=== PATIENT | female | born 2000 | race Caucasian/White ===

== ENCOUNTER 2022-07-04 13:39 | Observation (INO) | payer MEDICAID ==
[~2022-07-04] VITALS: Ht 160 cm; Wt 61.2 kg
== END 2022-07-04 16:30 | disposition home or self-care (01) ==
LOC: 8 EST LDRP 13:39
PROVIDERS: ADMIT Obstetrics & Gynecology; ATTEND Obstetrics & Gynecology
DX: O26.893 Other specified pregnancy related conditions, third trimester (principal); R10.30 Lower abdominal pain, unspecified; O99.891 Other specified diseases and conditions complicating pregnancy; M54.9 Dorsalgia, unspecified; Z3A.32 32 weeks gestation of pregnancy; Z79.899 Other long term (current) drug therapy
CPT/HCPCS: 59025; 76805; 76818; 99281; G0378

== ENCOUNTER 2022-07-19 17:07 | Observation (INO) | payer MEDICAID ==
[~2022-07-19] VITALS: Ht 165.1 cm; Wt 61.0 kg
[2022-07-19] MEDS ORDERED: LACTATED RINGERS 1,000 ML IV SCH (18:30)
[2022-07-19 19:05] LABS: CLARITY URINE CLEAR (CLEAR); COLOR URINE YELLOW (YELLOW); KETONES URINE NEGATIVE (NEGATIVE); LEUKOCYTE ESTERASE URINE TRACE (NEGATIVE); NITRITE URINE NEGATIVE (NEGATIVE); OCCULT BLOOD URINE NEGATIVE (NEGATIVE); PH URINE 6.5 (4.5-8.0); PROTEIN URINE NEGATIVE (NEGATIVE); SPECIFIC GRAVITY URINE 1.009 (1.005-1.030); UROBILINOGEN URINE 0.2 E.U./dL (0.2-1.0)
[2022-07-19] MEDS ORDERED: PREN1TAB78 PO (20:10)
== END 2022-07-19 20:45 | disposition home or self-care (01) ==
LOC: 8 EST LDRP 17:07
PROVIDERS: ADMIT Obstetrics & Gynecology; ATTEND Obstetrics & Gynecology
DX: O26.893 Other specified pregnancy related conditions, third trimester (principal); N89.8 Other specified noninflammatory disorders of vagina; R10.9 Unspecified abdominal pain; Z3A.34 34 weeks gestation of pregnancy
CPT/HCPCS: 59025; 81003; 82731; 96360; 96361; G0378; 99281

== ENCOUNTER 2022-08-04 19:29 | Observation (INO) | payer MEDICAID ==
[~2022-08-04] VITALS: Ht 163 cm; Wt 63.0 kg
[~2022-08-04 19:29] MED LIST: PREN1TAB78 PO
[2022-08-04] MEDS ORDERED: ACETAMINOPHEN 325MG TABLET PO NR (22:45)
[2022-08-04] MEDS ORDERED: TOPUD MT (23:01)
== END 2022-08-04 23:20 | disposition home or self-care (01) ==
LOC: INTOOBSV 19:29 → 8 EST LDRP 19:29
PROVIDERS: ADMIT Obstetrics & Gynecology; ATTEND Obstetrics & Gynecology
DX: O26.893 Other specified pregnancy related conditions, third trimester (principal); N89.8 Other specified noninflammatory disorders of vagina; O62.9 Abnormality of forces of labor, unspecified; Z3A.37 37 weeks gestation of pregnancy; Z79.899 Other long term (current) drug therapy
CPT/HCPCS: 59025; 76815; 76818; 86703; G0378; 99281

== ENCOUNTER 2022-08-09 01:21 | Inpatient (IN) | payer MEDICAID ==
[~2022-08-09] VITALS: Ht 163 cm; Wt 63.5 kg
[~2022-08-09 01:21] MED LIST changes: +TOPUD MT
[2022-08-09] MEDS ORDERED: CARBOPROST TROMETHAMINE 250 MCG/ML AMPUL IM PRN (02:15)
[2022-08-09] MEDS ORDERED: METHYLERGONOVINE MALEATE 0.2 MG/ML IM PRN (02:15)
[2022-08-09] MEDS ORDERED: BUTORPHANOL TARTRATE 2 MG/ML VIAL IV PRN (02:15)
[2022-08-09] MEDS ORDERED: LACTATED RINGERS 1,000 ML IV SCH (02:15)
[2022-08-09] MEDS ORDERED: LIDOCAINE HCL 1% 20ML VIAL (Pyxis) INJ INFIL SCH (02:15)
[2022-08-09] MEDS ORDERED: PENICILLIN G POTASSIUM 5 MMU in DEXT 5% WATER 100 ML IV NR (03:00)
[2022-08-09] MEDS: OXYTOCIN 30 UNITS/500ML NS PMX 500 ML IV SCH ×2 (04:38→05:08)
[2022-08-09 05:39] LABS: BASOPHILS % 0.2 % (0.0-2.0); EOSINOPHILS % 0.2 % (0.0-5.0); HEMATOCRIT. 37.2 % (36.0-48.0); HEMOGLOBIN. 12.8 g/dL (12.0-16.0); LYMPHOCYTES % 17.9 % (20.0-50.0); MEAN CORPUSCULAR HEMOGLOBIN 29.8 pg (28.0-32.0); MEAN CORPUSCULAR VOLUME 86.8 fL (81.0-99.0); MEAN PLATELET VOLUME 10.5 fl (7.4-10.4); MONOCYTES % 5.4 % (2.0-8.0); NEUTROPHILS % 76.3 % (40.0-76.0); PLATELET 183 x1000/uL (130-400); RED BLOOD CELL COUNT 4.29 mill/uL (4.2-5.4); RED CELL DISTRIBUTION WIDTH 13.6 % (11.6-14.6)
[2022-08-09] MEDS ORDERED: DIPHENHYDRAMINE 25MG CAPSULE PO PRN (05:45)
[2022-08-09] MEDS ORDERED: ACETAMINOPHEN WITH CODEINE 300/30MG TABLET PO PRN (05:45)
[2022-08-09] MEDS ORDERED: GLYCERIN/WITCH HAZEL LEAF MEDICATED PAD TOP PRN (05:45)
[2022-08-09] MEDS ORDERED: BENZOCAINE/LANOLIN/ALOE VERA SPRAY TOP PRN (05:45)
[2022-08-09] MEDS ORDERED: IBUPROFEN 400MG TABLET PO PRN (05:45)
[2022-08-09] MEDS ORDERED: HEMORRHOIDAL SUPP PR PRN (05:45)
[2022-08-09] MEDS ORDERED: RHO(D) IMMUNE GLOBULIN 300 MCG/SYR IM PRN (05:45)
[2022-08-09] MEDS ORDERED: LANOLIN OINT 7GM TUBE TOP PRN (05:45)
[2022-08-09] MEDS ORDERED: ACETAMINOPHEN 500MG TABLET PO PRN (05:45)
[2022-08-09] MEDS ORDERED: BISACODYL 10MG SUPP PR PRN (05:45)
[2022-08-09] MEDS ORDERED: OXYTOCIN 30 UNITS/500ML NS PMX 500 ML IV SCH (05:45)
[2022-08-09 05:50] VITALS: BP 105/63
[2022-08-09 06:01] LABS: INR 0.9; PARTIAL THROMBOPLASTIN TIME 26.8 sec (23.4-31.0); PROTHROMBIN TIME 9.8 sec (9.6-11.0)
[2022-08-09] MEDS ORDERED: PENICILLIN G POTASSIUM 2.5 MMU in DEXTROSE 5% WATER 50 ML IV SCH (07:00)
[2022-08-09 08:00] VITALS: BP 110/67
[2022-08-09] MEDS: MAGNESIUM/ALUMINUM HYDROXIDE/SIMETHICONE 30ML UDC PO SCH ×4 (09:00→21:07)
[2022-08-09] MEDS: PRENATAL VIT/FE FUMARATE/FA TABLET PO SCH (09:00)
[2022-08-09] MEDS ORDERED: METHYLERGONOVINE MALEATE 0.2MG TABLET PO SCH (09:00)
[2022-08-09] MEDS: SIMETHICONE 80MG TABLET CHEW PO SCH ×4 (09:00→21:07)
[2022-08-09 09:34] LABS: CLARITY URINE TURBID (CLEAR); COLOR URINE RED (YELLOW); KETONES URINE 1+ (NEGATIVE); LEUKOCYTE ESTERASE URINE 2+ (NEGATIVE); NITRITE URINE POSITIVE (NEGATIVE); OCCULT BLOOD URINE 3+ (NEGATIVE); PROTEIN URINE 1+ (NEGATIVE); UROBILINOGEN URINE 0.2 E.U./dL (0.2-1.0)
[2022-08-09 10:57] LABS: *AMPHETAMINES SCREEN URINE NEGATIVE (NEGATIVE); *BARBITURATES SCREEN URINE NEGATIVE (NEGATIVE); *BENZODIAZEPINES SCREEN URINE NEGATIVE (NEGATIVE); *COCAINE SCREEN URINE NEGATIVE (NEGATIVE); CANNABINOID URINE SCREEN NEGATIVE (NEGATIVE); METHADONE URINE SCREEN NEGATIVE (NEGATIVE); OPIATES URINE SCREEN NEGATIVE (NEGATIVE); PHENCYCLIDINE URINE SCREEN NEGATIVE (NEGATIVE)
[2022-08-09 16:00] VITALS: BP 104/57
[2022-08-09 20:00] VITALS: BP 111/66
[2022-08-09] MEDS: DOCUSATE SODIUM 100MG CAPSULE PO SCH (21:07)
[2022-08-09] MEDS: IBUPROFEN 800MG TABLET PO PRN (21:07)
[2022-08-10 04:00] VITALS: BP 97/64
[2022-08-10 07:20] LABS: BASOPHILS % 0.3 % (0.0-2.0); EOSINOPHILS % 0.9 % (0.0-5.0); HEMATOCRIT. 37.6 % (36.0-48.0); HEMOGLOBIN. 12.7 g/dL (12.0-16.0); LYMPHOCYTES % 22.9 % (20.0-50.0); MEAN CORPUSCULAR HEMOGLOBIN 29.8 pg (28.0-32.0); MEAN CORPUSCULAR VOLUME 88.4 fL (81.0-99.0); MEAN PLATELET VOLUME 10.4 fl (7.4-10.4); MONOCYTES % 8.9 % (2.0-8.0); PLATELET 181 x1000/uL (130-400); RED BLOOD CELL COUNT 4.25 mill/uL (4.2-5.4); RED CELL DISTRIBUTION WIDTH 13.5 % (11.6-14.6)
[2022-08-10 08:00] VITALS: BP 97/61
[2022-08-10] MEDS: MAGNESIUM/ALUMINUM HYDROXIDE/SIMETHICONE 30ML UDC PO SCH ×4 (09:00→20:34)
[2022-08-10] MEDS: FERROUS SULFATE 325MG TABLET PO SCH ×3 (09:00→17:00)
[2022-08-10] MEDS: SIMETHICONE 80MG TABLET CHEW PO SCH ×4 (09:00→20:34)
[2022-08-10] MEDS: PRENATAL VIT/FE FUMARATE/FA TABLET PO SCH (15:20)
[2022-08-10] MEDS: IBUPROFEN 800MG TABLET PO PRN (15:20)
[2022-08-10 16:00] VITALS: BP 106/68
[2022-08-10 20:00] VITALS: BP 103/57
[2022-08-10] MEDS: DOCUSATE SODIUM 100MG CAPSULE PO SCH (20:33)
[2022-08-11 04:00] VITALS: BP 112/61
[2022-08-11 08:00] VITALS: BP 108/63
[2022-08-11] MEDS: FERROUS SULFATE 325MG TABLET PO SCH (08:27)
[2022-08-11] MEDS: PRENATAL VIT/FE FUMARATE/FA TABLET PO SCH (08:27)
[2022-08-11] MEDS: MAGNESIUM/ALUMINUM HYDROXIDE/SIMETHICONE 30ML UDC PO SCH (08:27)
[2022-08-11] MEDS: SIMETHICONE 80MG TABLET CHEW PO SCH (08:27)
== END 2022-08-11 12:50 | disposition home or self-care (01) | DRG 560 ==
LOC: OBSVTOIN 01:21 → 8 EST LDRP 01:21 → 8 EST A/PP 07:35
PROVIDERS: ADMIT Obstetrics & Gynecology; ATTEND Obstetrics & Gynecology
PROC: 10E0XZZ Delivery of Products of Conception, External Approach (ICD-10-PCS; principal; 2022-08-10)
DX: O80 Encounter for full-term uncomplicated delivery (principal); Z37.0 Single live birth; Z20.822 Contact with and (suspected) exposure to COVID-19; Z3A.39 39 weeks gestation of pregnancy
CPT/HCPCS: 36415; 76805; 80305; 81003; 85025; 86592; 86703; 86762; 86850; 86900; 87340; 87426; 99281; J2540; J3490; J7060; J7120; J2590